=== PATIENT | female | born 1950 | race Caucasian/White ===

== ENCOUNTER 2016-09-05 06:31 | Day surgery (SDC) | payer BC ==
[2016-08-28 09:54] LABS: BASOPHILS 1.3 %; BASOPHILS ABSOLUTE 0.05 10/3/uL (0.0-0.16); HEMATOCRIT 39.5 % (36.0-48.0); HEMOGLOBIN 13.3 g/dL (12.0-16.0); LYMPHOCYTES 28.4 %; LYMPHOCYTES ABSOLUTE 1.13 10/3/uL (0.67-4.30); MEAN CORPUS HGB CONC 33.7 g/dL (32.0-36.0); MEAN CORPUSCULAR HEMOGLOB 29.2 pg (26.0-34.0); MEAN CORPUSCULAR VOLUME 86.6 fL (80-100); MEAN PLATELET VOLUME 9.1 fL (9.2-13.0); MONOCYTES 10.6 %; MONOCYTES ABSOLUTE 0.42 10/3/uL (0.21-1.20); NEUTROPHILS 54.7 %; NEUTROPHILS ABSOLUTE 2.18 10/3/uL (2.02-8.40); PLATELET COUNT 194 10/3/uL (150-400); RBC DISTRIBUTION WIDTH 12.8 % (12.0-16.0); RED CELL COUNT 4.56 10/6/uL (4.0-5.6)
[2016-08-28 09:57] LABS: MANUAL DIFF NO %
[2016-08-28 11:08] LABS: A/G RATIO 1.2 (0.7-1.9); ALBUMIN 3.8 G/DL (3.5-5.0); ALKALINE PHOSPHATASE 68 U/L (45-117); BUN (BLOOD UREA NITROGEN) 12 MG/DL (6-23); CALCIUM, SERUM 8.9 MG/DL (8.5-10.4); CHLORIDE, SERUM 106 MMOL/L (96-112); CO2 (CARBON DIOXIDE) 26 MMOL/L (24-34); CREATININE 0.64 MG/DL (0.55-1.02); GFR AFRICAN AMERICAN 110 ML/MIN (>=60); GFR NON AFRICAN AMERICAN 95 ML/MIN (>=60); GLOBULIN 3.1 G/DL (2.5-4.1); GLUCOSE, SERUM 106 MG/DL (60-99); POTASSIUM, SERUM 4.4 MMOL/L (3.5-5.3); SGOT(AST) 13 U/L (5-40); SGPT(ALT) 25 U/L (5-65); SODIUM, SERUM 141 MMOL/L (135-148); TOTAL BILIRUBIN 0.5 MG/DL (0-1.2); TOTAL PROTEIN 6.9 G/DL (6.0-8.5)
--- NOTE | ~2016-09-05 | OP ---
Record Of Operation [facility] [address] [place]. [address] NAME: SHARONA RIOS : 54 STATUS : REG [facility] PAT#: [id number] AGE: 65 ADM/REG DATE : 09/05/16 MR#: [id number] REPORT SERV DATE: 09/05/16 DICTATED BY: MORGAN CRAFT DATE: 09/05/16 REPORT STATUS : Draft TRANSCRIBED BY: MODL DATE: 09/05/16 DATE OF PROCEDURE: 09/05/2016 PREOPERATIVE DIAGNOSIS: Retained gallbladder with symptomatic cholelithiasis. POSTOPERATIVE DIAGNOSIS: Retained gallbladder with symptomatic cholelithiasis. OPERATION PERFORMED: Laparoscopic excision of the retained gallbladder with intraoperative cholangiogram. SURGEON: Morgan Craft M.D. TELEVISION SCRIPT WRITER: Tato Sandra MD. ESTIMATED BLOOD LOSS: Less than 10 mL. IV FLUIDS: Adequate. INDICATION FOR PROCEDURE: Ms Rios is a 65-year-old white female, who was recently seen at [facility] with abdominal pain. She had an MRCP and a CT at that time which showed acute cholecystitis. The patient; however, has had a history of a cholecystectomy in the past, the op note and pathology which I have reviewed. Given her symptomatology and visible stones with what looked to be a gallbladder remnant. She is brought to the operating room today for excision. INTRAOPERATIVE FINDINGS: Retained gallbladder with what looks to have clips at the fundus. She had a normal intraoperative cholangiogram. There were stones within the gallbladder. DESCRIPTION OF OPERATION: After appropriate sedation, the patient was prepped and draped in proper sterile fashion. The skin and subcutaneous tissues around the umbilicus were infiltrated with local anesthesia. A vertical incision was made at the umbilical skin. She had a small umbilical hernia, which was opened up slightly, and a 10-mm trocar was placed in the abdomen. The abdomen was then insufflated to 15 mmHg. We placed a 10-mm subxiphoid and two right lateral 5-mm trocars under direct visualization after obtaining local anesthesia in standard fashion. There were adhesions to the edge of the liver. These were taken down sharply until we were able to see some clips. Just below the clips, it looked to be a retained gallbladder. We continued to take down adhesions down to the infundibulum of the gallbladder. We were able to finally dissect down to what looked to be the cystic duct. There was no definitive cystic artery, but there were some small branches that were taken down using hook cautery. We then dissected out posterior to the gallbladder remnant and dissected out the cystic duct. One clip was placed proximally on the cystic duct and ductotomy was performed. Cholangiocatheter was fed into the cystic duct and cholangiogram was performed showing normal filling of the biliary tree without evidence of filling defect. This did indeed appear to be the cystic duct. It was then ligated between the hemoclips and the gallbladder remnant, it was taken off the gallbladder fossa using hook cautery. It was placed in an Endopouch and brought out through the umbilical trocar site. We then replaced Record Of Operation [address] [place]. [address] NAME: SHARONA RIOS : 54 STATUS : REG [facility] PAT#: [id number] AGE: 65 ADM/REG DATE : 09/05/16 MR#: [id number] REPORT SERV DATE: 09/05/16 DICTATED BY: MORGAN CRAFT DATE: 09/05/16 REPORT STATUS : Draft TRANSCRIBED BY: MODL DATE: 09/05/16 the trocar and visualized the right upper quadrant. There was no evidence of bleeding. There was no evidence of bile leak. We instilled 20 mL of Marcaine over the right lobe of the liver. We removed our trocars under direct visualization. There was no evidence of bleeding from the abdominal wall. The abdomen was then desufflated. The fascia at the umbilical trocar site was then closed using 0 Vicryl suture. The skin was closed using interrupted running 4-0 Monocryl suture. Steri-Strips and dressings were then placed. The patient was taken to the recovery room in satisfactory condition. JAVIER/BO Morgan Craft M.D. / [id number] CC: Freddy Teixeira M.D.
[~2016-09-05 06:31] MED LIST: CO Q-10100 MG PO; CYANO1000T PO; HARD NAILS PO; PRAVACHOL40 MG PO; PRILOSEC40 MG PO; SYN112 PO; VITAMIN D31000 UNIT PO; VITC500 PO
== END 2016-09-05 11:50 | disposition home or self-care (01) ==
LOC: SDC 06:31
PROVIDERS: Specialist
PROC: 0FT44ZZ Resection of Gallbladder, Percutaneous Endoscopic Approach (ICD-10-PCS; principal; 2016-09-05 07:45)
PROC: BF13YZZ Fluoroscopy of Gallbladder and Bile Ducts using Other Contrast (ICD-10-PCS; 2016-09-05 07:45)
DX: K80.10 Calculus of gallbladder with chronic cholecystitis without obstruction (principal); E03.9 Hypothyroidism, unspecified; G47.33 Obstructive sleep apnea (adult) (pediatric); E78.5 Hyperlipidemia, unspecified; Z98.51 Tubal ligation status; Z90.89 Acquired absence of other organs; Z98.890 Other specified postprocedural states
CPT/HCPCS: 74300; 80053; 85025; 88304; 93005; A9270-GY; J0690; J1885; J2250; J2405; J2710; J3010; Q9967